=== PATIENT | female | born 1960 | race Caucasian/White ===

== ENCOUNTER 2017-11-10 11:08 | Emergency (ER) | payer OTHER ==
[~2017-11-10] VITALS: Ht 160 cm; Wt 53.5 kg
[~2017-11-10 11:08] MED LIST: ATIVAN2 MG; HYDROCODON-ACE1 EAC7; HYDROCODON-ACE1 EAC7 PO; LORTAB 10-3251 EACH PO; OXYCONTIN10 M1 PO; PERCOCET 5-3251 EACH PO; TRAMADOL 50 MG50 MG PO; XANAX1 MG PO; ZESTRIL20 MG
[2017-11-10] MEDS ORDERED: LISINOPRIL10 MG PO (12:02)
[2017-11-10] MEDS ORDERED: MICROZIDE12.5 MG PO (12:03)
[2017-11-10] MEDS ORDERED: KEPPRA 500 MG500 M1 PO (12:03)
[2017-11-10 12:05] LABS: HEMATOCRIT 37.4 % (37.0-47.0); MCH 33.6 pg (26.0-34.0); MCHC 34.7 g/dL (28.0-37.0); MCV 96.8 fL (80.0-100.0); RBC 3.86 mil/uL (4.20-5.00); RDW 14.2 % (10.5-14.5); WBC 6.8 thou/uL (4.0-11.0)
[2017-11-10 12:20] LABS: CALCIUM 8.6 mg/dL (8.5-10.1); CREATININE 0.9 mg/dL (0.6-1.0)
[2017-11-10 12:24] LABS: POTASSIUM 2.2 mmol/L (3.5-5.1)
[2017-11-10 12:37] LABS: PROTIME 9.3 Seconds (9.3-11.4)
[2017-11-10] MEDS ORDERED: POTASSIUM20 PO (13:49)
[2017-11-10 14:20] VITALS: BP 116/74
== END 2017-11-10 14:23 | disposition left against medical advice (07) ==
LOC: ER 11:08
PROVIDERS: Physician Assistant
DX: S02.32XA Fracture of orbital floor, left side, initial encounter for closed fracture (principal); S02.40FA Zygomatic fracture, left side, initial encounter for closed fracture; S06.5X0A Traumatic subdural hemorrhage without loss of consciousness, initial encounter; E87.6 Hypokalemia; E87.1 Hypo-osmolality and hyponatremia; R56.9 Unspecified convulsions; I10 Essential (primary) hypertension; W22.8XXA Striking against or struck by other objects, initial encounter; Y92.89 Other specified places as the place of occurrence of the external cause; Y93.89 Activity, other specified; Y99.8 Other external cause status

== ENCOUNTER 2017-11-13 14:34 | Emergency (ER) | payer OTHER ==
[~2017-11-13] VITALS: Ht 160 cm; Wt 54.0 kg
--- NOTE | ~2017-11-13 | EKG ---
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
[~2017-11-13 14:34] MED LIST changes: +KEPPRA 500 MG500 M1 PO; +LISINOPRIL10 MG PO; +MICROZIDE12.5 MG PO; +POTASSIUM20 PO
[2017-11-13 16:48] VITALS: BP 107/67
[2017-11-13 16:51] LABS: ABSOLUTE NEUTROPHILS 2.6 thou/uL (1.4-8.2); BASOPHILS 1.2 % (0.0-2.0); EOSINOPHILS 1.4 % (0.0-3.0); HEMATOCRIT 39.2 % (37.0-47.0); HEMOGLOBIN 13.4 gm/dL (12.0-15.0); LYMPHOCYTES 43.2 % (24.0-44.0); MCH 33.4 pg (26.0-34.0); MCHC 34.2 g/dL (28.0-37.0); MCV 97.7 fL (80.0-100.0); PLATELET COUNT 231 thou/uL (150-400); POLYS 47.2 % (36.0-66.0); RBC 4.01 mil/uL (4.20-5.00); RDW 14.5 % (10.5-14.5); WBC 5.6 thou/uL (4.0-11.0)
[2017-11-13 17:00] LABS: CALCIUM 8.7 mg/dL (8.5-10.1); CREATININE 0.7 mg/dL (0.6-1.0)
[2017-11-13 17:03] LABS: POTASSIUM 2.2 mmol/L (3.5-5.1)
[2017-11-13 17:05] LABS: PROTIME 9.5 Seconds (9.3-11.4)
[2017-11-13] MEDS ORDERED: POTASSIUM20 PO (17:20)
== END 2017-11-13 17:31 | disposition left against medical advice (07) ==
LOC: ER 14:34
PROVIDERS: Physician Assistant
DX: S02.82XA Fracture of other specified skull and facial bones, left side, initial encounter for closed fracture (principal); S06.5X0A Traumatic subdural hemorrhage without loss of consciousness, initial encounter; R56.9 Unspecified convulsions; E87.6 Hypokalemia; I10 Essential (primary) hypertension; F17.210 Nicotine dependence, cigarettes, uncomplicated; Z86.19 Personal history of other infectious and parasitic diseases; X58.XXXA Exposure to other specified factors, initial encounter; Y93.89 Activity, other specified; Y92.89 Other specified places as the place of occurrence of the external cause; Y99.8 Other external cause status

== ENCOUNTER 2017-11-24 18:20 | Emergency (ER) | payer OTHER ==
[~2017-11-24] VITALS: Ht 157.5 cm; Wt 49.9 kg
== END 2017-11-24 19:51 | disposition home or self-care (01) ==
LOC: ER 18:20
DX: F10.10 Alcohol abuse, uncomplicated (principal); F17.210 Nicotine dependence, cigarettes, uncomplicated; I10 Essential (primary) hypertension